=== PATIENT | male | born 1990 | race Caucasian/White ===

== ENCOUNTER 2016-03-19 08:33 | Emergency (ER) | payer OTHER ==
--- NOTE | 2016-03-19 13:14 | ED ORDER SUMMARY ---
..... Patient: ELSY RIVERA OrderSheet [facility] VisitID: [id number] [address] [place] [address] 25y, M Registration Date/Time: 03/19/2016 ORDER SHEET Weight: 74.8 kg (stated) Allergies: No Known Drug Allergy GENERAL ORDERS: CBC w Diff Urgent (08:48 03/19/2016 Milton JACOBS) (9:33 Johnathan R.N.) CMP Urgent (08:48 03/19/2016 Milton JACOBS) (9:33 Johnathan R.N.) UA-Culture if indicated Urgent (08:48 03/19/2016 Milton JACOBS) (Ack 9:46 ALawrence ER Tech1) (10:46 Johnathan R.N.) Lipase Urgent (08:48 03/19/2016 Milton JACOBS) (9:33 Johnathan R.N.) MEDICATION ORDERS: IV FLUIDS: IV NS : initial bolus none -, then 1000 mL/hr for 2h (NOW); Urgent (2 liters of saline) (08:47 03/19/2016 Milton JACOBS) (Ack 8:50 Johnathan R.N.) (9:09 Johnathan R.N.) Zofran IV 8 mg (NOW) (08:48 03/19/2016 Milton JACOBS) (Ack 8:50 Johnathan R.N.) (9:09 Johnathan R.N.) ORDER SHEET NOTES: [Electronically signed by Jacklyn Cabrera R.N. (13:42 03/19/2016)] [Electronically signed by Fabien Mitchell MD (19:31 03/19/2016)] [Electronically locked/signed by Jacklyn Cabrera R.N. (13:42 03/19/2016)]
--- NOTE | 2016-03-19 13:14 | ED ORDER SUMMARY ---
..... Patient: ELSY RIVERA OrderSheet VisitID: [id number] [address] [place] [address] 25y, M Registration Date/Time: 03/19/2016 ORDER SHEET Weight: 74.8 kg (stated) Allergies: No Known Drug Allergy GENERAL ORDERS: CBC w Diff Urgent (08:48 03/19/2016 Milton JACOBS) (9:33 Johnathan R.N.) CMP Urgent (08:48 03/19/2016 Milton JACOBS) (9:33 Johnathan R.N.) UA-Culture if indicated Urgent (08:48 03/19/2016 Milton JACOBS) (Ack 9:46 ALawrence ER Tech1) (10:46 Johnathan R.N.) Lipase Urgent (08:48 03/19/2016 Milton JACOBS) (9:33 Johnathan R.N.) MEDICATION ORDERS: IV FLUIDS: IV NS : initial bolus none -, then 1000 mL/hr for 2h (NOW); Urgent (2 liters of saline) (08:47 03/19/2016 Milton JACOBS) (Ack 8:50 Johnathan R.N.) (9:09 Johnathan R.N.) Zofran IV 8 mg (NOW) (08:48 03/19/2016 Milton JACOBS) (Ack 8:50 Johnathan R.N.) (9:09 Johnathan R.N.) ORDER SHEET NOTES: [Electronically signed by Jacklyn Cabrera R.N. (13:42 03/19/2016)] [Electronically signed by Fabien Mitchell MD (19:31 03/19/2016)] [Electronically locked/signed by Jacklyn Cabrera R.N. (13:42 03/19/2016)]
--- NOTE | 2016-03-19 13:14 | ED CLINICAL REPORT ---
Clinical Report - Physicians/Mid Levels [facility] [address] [place] [address] 03/19/2016 8:33 Patient: ELSY RIVERA Time Seen: 08:46. Arrived- By private vehicle. Historian- patient and family. HISTORY OF PRESENT ILLNESS Chief Complaint: VOMITING and DIARRHEA. This started last night and is still present. It was abrupt in onset and has been constant and waxing/waning. The patient has had nausea and severe, constant abdominal pain. The pain is described as located in the upper abdomen. He has had vomiting. The vomiting has occurred numerous times. No coffee-grounds emesis or frankly bloody emesis. He has had loose stools. This has occurred numerous times. It has been watery. No bloody diarrhea. He has had contact with a sick family member. They have had similar symptoms. The illness is described as moderate. REVIEW OF SYSTEMS No chills, fever, sweats, calf pain or chest pain. No cough, difficulty breathing, pedal edema or palpitations. He has had fatigue. He has had urinary problems (he reports decreased urination). All systems otherwise negative, except as recorded above. PAST HISTORY Problems: Cervical Strain. Fall. Tremor. Additional Surgeries: Adenoidectomy. Dental Surgery. Medications: Propranolol HCl ER Oral, as needed. Allergies: No Known Drug Allergy. SOCIAL HISTORY Never smoker. Occasional alcohol use. No drug use. Residence: He is supposed to leave for [place] later today to attend school Is a local resident. Due to get on a plane for [place] at 2 pm. FAMILY HISTORY No significant family medical history. PHYSICAL EXAM Appearance: Alert. Eyes: Pupils equal, round and reactive to light. ENT: Pharynx normal. Neck: Normal inspection. Neck supple. CVS: Normal heart rate and rhythm. Heart sounds normal. Respiratory: No respiratory distress. Breath sounds normal. Abdomen: Soft and nontender. Abnormal bowel sounds: hyperactive. No organomegaly. No mass. Back: Normal inspection. No CVA tenderness. Skin: Skin warm and dry. Normal skin color. No rash. Normal skin turgor. Extremities: Extremities exhibit normal ROM. No calf tenderness. No lower extremity edema. LABS, X-RAYS, AND EKG Laboratory Tests: UA-Culture if indicated: (JUAN: 03/19/2016 10:45) ( MsgRcvd 03/19/2016 11:11) Final results Test Result Flag Units (Reference) URINE COLOR YELLOW URINE APPEARANCE CLEAR URINE GLUCOSE NEGATIVE (NEGATIVE) URINE BILIRUBIN NEGATIVE (NEGATIVE) URINE KETONE 3+ (NEGATIVE) URINE SPECIFIC GRAVITY 1.010 (1.010-1.030) URINE PH 7.5 (5.0-8.0) URINE PROTEIN NEGATIVE (NEGATIVE) URINE UROBILINOGEN 0.2 EU/dL (0.2-1.0) URINE NITRITE NEGATIVE (NEGATIVE) URINE BLOOD NEGATIVE (NEGATIVE) URINE LEUK ESTERASE NEGATIVE (NEGATIVE) URINE RBC NONE SEEN rbc/hpf (0-1) URINE WBC 0-1 wbc/hpf (0-1) URINE EPITHELIAL CELLS RARE EPI/hpf (0-5) URINE BACTERIA NONE SEEN (NONE SEEN) URINE COMMENT CULT NOT INDICATED TRACE MUCOUSURINE CULTURES ARE SET-UP BASED ON THE FOLLOWING CRITERIA:POSITIVE NITRITEPOSITIVE LEUKOCYTE ESTERASEGREATER THAN 10 WHITE BLOOD CELLSMODERATE (2+) OR GREATER BACTERIA CBC w Diff: (JUAN: 03/19/2016 09:00) ( MsgRcvd 03/19/2016 09:24) Final results Test Result Flag Units (Reference) WHITE BLOOD COUNT 15.6 H K/uL (4.5-11.5) RED BLOOD COUNT 5.70 M/uL (4.50-5.90) HEMOGLOBIN 16.8 gm/dL (13.5-17.5) HEMATOCRIT 51.1 % (41.0-53.0) MEAN CELL VOLUME 90 fL (80-100) MEAN CORPUSCULAR HGB 29 pg (26-34) MEAN CORPUSCULAR HGB CONC 33 g/dL (31-37) RED CELL DISTRIBUTION WIDTH 13.2 % (11.6-14.8) PLATELET COUNT 259 K/uL (150-400) NEUTROPHIL % 92.3 H % (50-75) LYMPH % 3.6 L % (25-40) MONO % 4.0 % (3-14) EOSINOPHIL % 0.1 % (0-4) BASOPHIL % 0 % (0-2) CMP: (JUAN: 03/19/2016 09:00) ( MsgRcvd 03/19/2016 10:11) Final results Test Result Flag Units (Reference) GLUCOSE 129 H mg/dL (70-110) BUN 22 H mg/dL (7-18) CREATININE 0.9 mg/dL (0.6-1.3) Estimated GFR >60 mL/min Estimated GFR- >60 mL/min Note: Persistent reduction over 3 months in eGFR<60 mL/min/1.73 m2 defines CKD. Patients with eGFR values>=60 mL/min/1.73 m2 may also have CKD if evidence ofpersistent proteinuria. Additional information may be foundat www.kidney.org. SODIUM 142 mmol/L (136-145) POTASSIUM 3.8 mmol/L (3.5-5.1) CHLORIDE 102 mmol/L (98-107) CARBON DIOXIDE 26 mmol/L (21-32) CALCIUM 8.9 mg/dL (8.5-10.1) TOTAL PROTEIN 8.0 g/dL (6.4-8.2) ALBUMIN 4.4 g/dL (3.3-5.0) BILIRUBIN, TOTAL 0.7 mg/dL (0.0-1.0) ALKALINE PHOSPHATASE 80 U/L (46-116) AST (SGOT) 17 U/L (15-37) ALT (SGPT) 25 U/L (12-78) LIPASE 100 U/L (73-393) . PROGRESS AND PROCEDURES Course of Care: Symptoms better. Vital signs have been reviewed. Physical exam findings are improved. Alert. No acute distress. Breath sounds normal. Normal heart rate and rhythm. Heart sounds normal. Abdomen soft and nontender. Skin warm and dry. Patient/family counseled. Old medical records ordered. Disposition: Discharged. Condition: stable. CLINICAL IMPRESSION Acute viral gastroenteritis. INSTRUCTIONS No driving or operating machinery while taking medication. Drink plenty of fluids. Warnings: Further evaluation is necessary. GENERAL WARNINGS: Return or contact your physician immediately if your condition worsens or changes unexpectedly, if not improving as expected, or if other problems arise. Prescription Medications: Zofran 4 mg: Take 1 orally every six hours as needed for nausea/vomiting. Dispense ten (10). No refills. Substitution is permissible. Promethazine 25 mg suppositories: Insert 1 into rectum every 4 to 6 hours as needed for nausea and vomiting. Dispense twelve (12). No refills. Follow-up: Follow up with your doctor Tuesday. Call for an appointment. Understanding of the discharge instructions verbalized by patient and parent. (Electronically signed by Fabien Mitchell MD 03/19/2016 19:31)
--- NOTE | 2016-03-19 13:14 | ED NURSING NOTES ---
Clinical Report - Nurses [facility] [place] [address] 03/19/2016 8:33 Patient: ELSY RIVERA TRIAGE Triage time 08:44. Acuity: LEVEL 3. Chief Complaint: ABDOMINAL PAIN, NAUSEA, VOMITING and DIARRHEA. Alert. PRECIOUS COMA SCORE: Doland Coma Scale: 15- eyes open spontaneously (4); best verbal response- oriented x 4 (5); best motor response- obeys commands (6). --08:50 Jacklyn Cabrera R.N. 08:43 03/19/16. BP: 125/84. HR: 90. RR: 16. O2 saturation: 100% on room air. Temp: 98.1 F (oral). Pain level now: 09/13. --08:50 Jacklyn Cabrera R.N. Weight: 74.8 kg stated. Height/Length: 70 inches Per Patient. BMI: 23.7. --08:46 Jacklyn Cabrera R.N. Medications Propranolol HCl ER Oral, as needed. --08:45 Jacklyn Cabrera R.N. The following entry was struck and corrected by Jacklyn Cabrera R.N., 08:46 (03/19/16) Reason for correction - other(correction). <<STRICKEN ENTRY-- Propranolol HCl ER Oral. --08:45 Jacklyn Cabrera R.N. --END STRIKE>>. Medication/allergy information source: the patient. --08:50 Jacklyn Cabrera R.N. Allergies No Known Drug Allergy. --08:45 Jacklyn Cabrera R.N. History Arrived by private vehicle. Historian: patient. Accompanied by family. Primary physician (Reji). This started today. Onset. (0100). Describes the quality as "pain" and ( constant). Relates location as in the upper abdomen. He has had diarrhea. SOCIAL HX: Smoker- current status unknown (no). Occasional alcohol use. No drug use. FALL RISK ASSESSMENT: Fall risk assessment completed. No fall risk identified. FUNCTIONAL ASSESSMENT: Functional assessment: no impairments noted. LEARNING NEEDS ASSESSMENT: The learning needs assessment revealed no barriers. --08:50 Jacklyn Cabrera R.N. PROBLEMS: Cervical Strain. Fall. Tremor. --08:45 Jacklyn Cabrera R.N. ADDITIONAL SURGERIES: Adenoidectomy. Dental Surgery. --08:46 Jacklyn Cabrera R.N. Assessment GENERAL / NEURO / PSYCH: The patient is awake and alert, is oriented and cooperative and appears uncomfortable. He has good eye contact. RESPIRATORY: Respirations not labored. SKIN: Skin is warm and dry. --08:50 Jacklyn Cabrera R.N. Interventions ID band on patient. To treatment room. --08:50 Jacklyn Cabrera R.N. PHYSICAL ASSESSMENT 08:52 03/19/16. Ambulatory to room. Patient gowned. GENERAL / NEURO / PSYCH: The patient is awake and alert, is oriented and cooperative and appears uncomfortable. He has good eye contact. RESPIRATORY: Respirations not labored. SKIN: Skin is warm and dry. --08:52 Jacklyn Cabrera R.N. NURSING PROGRESS NOTES 08:52 03/19/16. Pulse oximeter and NIBP monitor placed on patient. Patient gowned. Head of bed elevated. Call light placed in reach. Side rails up x 1. Bed placed in lowest position. Brakes of bed on. --08:52 Jacklyn Cabrera R.N. 09:00 03/19/2016 Site #1 started via IV in the right antecubital space with an 20g angiocath, with aseptic technique and good blood return; one attempt. Blood drawn: rainbow set. Labeled in the presence of the patient and sent to the lab. --09:08 Jacklyn Cabrera R.N. 09:09 03/19/2016 Started bag #1 1000 mL IV Fluids IV NS (Saline); at 1000 mL/hr over 1 hour(s) via site #1 --09:09 Jacklyn Cabrera R.N. 09:09 03/19/2016 Zofran (Ondansetron HCl) IVP 8 mg given over 4 minute(s) via site #1. Allergies verified and confirmed 5 rights. IV patency established. IV site checked: no pain, redness, or swelling. IV flushed thoroughly pre- and post-medication administration. IVP given by RN. --09:09 Jacklyn Cabrera R.N. 09:49 03/19/16. Reassessment after fluids administered and medication administered. He is resting quietly. Overall patient status is improved- he states feels better (ice chips and gatorade given). SKIN: Skin is warm and dry. --09:49 Jacklyn Cabrera R.N. 09:50 03/19/2016 IV Fluids IV NS Bag Change: bag #1 infused. Total amount infused: 1000. STARTED bag #2 (1000 mL) at 1000 mL/hr. --09:50 Jacklyn Cabrera R.N. 10:20 03/19/16. Reassessment after fluids administered and medication administered. He is resting quietly. Overall patient status is improved- he states feels the same (took a few ice chips but his stomach started hurting so he stopped, no further emesis, not able to void yet). --10:20 Jacklyn Cabrera R.N. 10:48 03/19/2016 Site #1; patent. Converted to saline lock. Flushed with 10 mL saline. --10:48 Jacklyn Cabrera R.N. 10:50 03/19/16. Reassessment after fluids administered. He is resting quietly. Overall patient status is improved- he states feels better (voided approx 200 ml per urinal). SKIN: Skin is warm and dry. --10:50 Jacklyn Cabrera R.N. 10:50 03/19/16. :patient confirmed. Clean catch urine collected; sample sent to lab. Specimen labeled in the presence of the patient. --10:50 Jacklyn Cabrera R.N. 09:00 03/19/16. BP: 124/79. HR: 98. RR: 16. O2 saturation: 100% on room air. --11:35 Jacklyn Cabrera R.N. 09:30 03/19/16. BP: 122/64. HR: 99. RR: 18. O2 saturation: 99% on room air. --11:38 Jacklyn Cabrera R.N. 10:00 03/19/16. BP: 123/61. HR: 100. O2 saturation: 100% on room air. --11:39 Jacklyn Cabrera R.N. 11:00 03/19/16. BP: 110/63. HR: 105. RR: 18. O2 saturation: 99% on room air. Temp: 98.5 F (oral). --11:42 Jacklyn Cabrera R.N. 11:51 03/19/2016 IV Fluids IV NS Bag Change: bag #2 infused. Total amount infused: 1000. STARTED bag #3 (1000 mL) at 1000 mL/hr (per VO of ERMD). --11:51 Jacklyn Cabrera R.N. 12:00 03/19/16. BP: 112/64. HR: 105. RR: 18. O2 saturation: 100% on room air. Pain level now: 03/16. --13:26 Jacklyn Cabrera R.N. 11:45. Reassessment after fluids administered. He is resting quietly. Overall patient status is improved (rests quietly with eyes closed, has had no emesis since arrival). SKIN: Skin is warm and dry. --13:26 Jacklyn Cabrera R.N. 13:00. Reassessment after fluids administered. He is calm and resting quietly. Overall patient status is improved- he states feels better (taking ice chips and gatorade without emesis, states he feels better). SKIN: Skin is warm and dry. --13:27 Jacklyn Cabrera R.N. 13:00 03/19/2016 Site #1 removed upon discharge. Catheter intact. Bandaid applied. --13:29 Jacklyn Cabrera R.N. 13:00 03/19/2016 IV Fluids IV NS Discontinued: bag #3 infused upon discharge. Total amount infused: 1000 mL. --13:28 Jacklyn Cabrera R.N. 13:00 03/19/2016 Zofran IVP Response: symptoms have improved the patient feels better. --13:28 Jacklyn Cabrera R.N. DISPOSITION / DISCHARGE Departure time: 1300. Condition at departure: improved and stable. No learning barriers present. Discharge instructions provided and reviewed with the patient. Reviewed medication(s) (Rx called to [facility] per pt request). Patient verbalized understanding. Written instructions provided in Kinyarwanda. The patient was discharged home and unaccompanied at time of discharge. He left the Emergency Department ambulatory and via private vehicle. FALL RISK ASSESSMENT: Fall risk assessment completed. No fall risk identified. --13:23 Jacklyn Cabrera R.N. 13:14 03/19/16. BP: 115/70. HR: 92. RR: 16. O2 saturation: 99% on room air. Pain level now: 0/10. --13:23 Jacklyn Cabrera R.N. Reviewed medication(s). Prescription(s) phoned to pharmacy ([facility]): Zofran 4 mg: take 1 orally every six hours as needed for nausea/vomiting, dispense ten (10), no refills, supstitution is permissible; Promethazine 25 mg suppositories: insert 1 into rectum every 4-6 hours as needed for nausea and vomiting, dispense twelve (12), no refills). --13:33 Jacklyn Cabrera R.N. Locked/Released at 03/19/2016 13:42 by Jacklyn Cabrera R.N.
--- NOTE | 2016-03-19 19:31 | ED MED RECONCILIATION SUMMARY ---
Patient: ELSY RIVERA Medication Reconciliation Report [facility] VisitID: [id number] [address] [place] [address] 25y, M Registration Date/Time: 03/19/2016 Weight: 74.8 kg Height/Length: 70 in. BMI: 23.7 ALLERGIES: No Known Drug Allergy The patient's Home Medications are listed below: THE FOLLOWING MEDICATIONS NEED TO BE RECONCILED: Propranolol HCl ER Oral The source(s) of the original Home Medication information: patient The following Medications were given to the patient in the Emergency Department: IV NS IV Fluids bolus 0, then 1000 mL/hr, administered: 03/19/2016 9:09:00 AM Zofran [IVP] IVP 8 mg, administered: 03/19/2016 9:09:00 AM The following Medications were prescribed to the patient: Zofran 4 mg: Take 1 orally every six hours as needed for nausea/vomiting. Dispense ten (10). No refills. Substitution is permissible. -- Fabien Mitchell MD Promethazine 25 mg suppositories: Insert 1 into rectum every 4 to 6 hours as needed for nausea and vomiting. Dispense twelve (12). No refills. -- Fabien Mitchell MD
--- NOTE | 2016-03-19 19:31 | ED MED RECONCILIATION SUMMARY ---
Patient: ELSY RIVERA Medication Reconciliation Report [facility] VisitID: [id number] [address] [place] [address] 25y, M Registration Date/Time: 03/19/2016 Weight: 74.8 kg Height/Length: 70 in. BMI: 23.7 ALLERGIES: No Known Drug Allergy The patient's Home Medications are listed below: THE FOLLOWING MEDICATIONS NEED TO BE RECONCILED: Propranolol HCl ER Oral The source(s) of the original Home Medication information: patient The following Medications were given to the patient in the Emergency Department: IV NS IV Fluids bolus 0, then 1000 mL/hr, administered: 03/19/2016 9:09:00 AM Zofran [IVP] IVP 8 mg, administered: 03/19/2016 9:09:00 AM The following Medications were prescribed to the patient: Zofran 4 mg: Take 1 orally every six hours as needed for nausea/vomiting. Dispense ten (10). No refills. Substitution is permissible. -- Fabien Mitchell MD Promethazine 25 mg suppositories: Insert 1 into rectum every 4 to 6 hours as needed for nausea and vomiting. Dispense twelve (12). No refills. -- Fabien Mitchell MD
--- NOTE | 2016-03-19 19:31 | ED DISCHARGE INSTRUCTIONS ---
Patient: ELSY RIVERA General Instructions [facility] VisitID: [id number] [place] [address] 25y, M Registration Date/Time: 03/19/2016 Acute viral gastroenteritis. INSTRUCTIONS No driving or operating machinery while taking medication. Drink plenty of fluids. Warnings: Further evaluation is necessary. GENERAL WARNINGS: Return or contact your physician immediately if your condition worsens or changes unexpectedly, if not improving as expected, or if other problems arise. Prescription Medications: Zofran 4 mg: Take 1 orally every six hours as needed for nausea/vomiting. Dispense ten (10). No refills. Substitution is permissible. Promethazine 25 mg suppositories: Insert 1 into rectum every 4 to 6 hours as needed for nausea and vomiting. Dispense twelve (12). No refills. Follow-up: Follow up with your doctor Tuesday. Call for an appointment. Understanding of the discharge instructions verbalized by patient and parent. ADDITIONAL INFORMATION Viral Gastroenteritis (6Yr-Adult) Gastroenteritis is another name for thestomach flu.It is most often caused by a virus that affects the stomach and intestinal tract. Symptoms include stomach cramping and fever, vomiting and/or diarrhea, and can last from 2 to 7 days. The danger from repeated vomiting or diarrhea is dehydration. This is the loss of too much water and minerals from the body. When this occurs, body fluids must be replaced. Antibiotics are not effective for this illness, but simple home treatment will be helpful. Home Care If symptoms are severe, rest at home for the next 24 hours. Avoid tobacco, caffeine, and alcohol use, which can worsen symptoms. Acetaminophen (Tylenol) or ibuprofen (Motrin, Advil) may be usedfor fever or pain unless another medication was prescribed. NOTE: If you have chronic liver or kidney disease or ever had a stomach ulcer or GI bleeding, talk with your doctor before using these medicines. Aspirin should never be used in anyone under 18 years of age who is ill with a fever. It may cause severe liver damage. If medicines for diarrhea or vomiting were prescribed, be sure they are takenonly as directed. If vomiting, drink small amounts of clear fluids (such as water, sports drinks, clear sodas) at frequent intervals to prevent dehydration. Start with 1 to 2 tablespoons every 10 minutes. Once vomiting stops, follow these guidelines: During The First 12 To 24 Hours follow the diet below: Beverages: Sport drinks like Gatorade, soft drinks without caffeine; gallo jeramy, mineral water (plain or flavored), decaffeinated tea and coffee. Soups: Clear broth, consomm and bouillon Desserts: Plain gelatin (Jell-O), Popsicles and fruit juice bars. During The Next 24 Hours you may add the following to the above: Hot cereal, plain toast, bread, rolls, crackers Plain noodles, rice, mashed potatoes, chicken noodle or rice soup Unsweetened canned fruit (avoid pineapple), bananas Limit fat intake to less than 15 grams per day by avoiding margarine, butter, oils, mayonnaise, sauces, gravies, fried foods, peanut butter, meat, poultry, and fish. Limit fiber; avoid raw or cooked vegetables, fresh fruits (except bananas), and bran cereals. Limit caffeine and chocolate. Do not use spices or seasonings except salt. During The Next 24 Hours The patient can gradually resume a normal diet as symptoms lessen. Preventing Spread Hand washing with soap and water is the best way to prevent the spread of viruses. Caregivers should wash their hands before andafter touching the sick person. The sick person, as well as everyone in the family,should wash their hands after using the toilet and before meals. Clean the toilet after each use. People with diarrhea should not prepare food for others. If you are preparing your own foods, wash your hands before and after. Follow Up with your doctor as advised. Call your doctor if you are not improving over the next 2 to 3 days. If a stool (diarrhea) sample was taken, you may call in 2 days (or as directed) for the results. Get Prompt Medical Attention if any of the following occur: Increasing abdominal pain Continued vomiting (unable to keep liquids down) Frequent diarrhea (more than 5 times a day) Blood in vomit or stool (black or red color) Dark urine, reduced urine output, or extreme thirst Weakness, dizziness, fainting Drowsiness, confusion, stiff neck, or seizure Fever of 100.4F (38C) oral or higher, not better with fever medication New rash Dehydration (Adult) Dehydration occurs when your body loses too much fluid. This may be the result of vomiting a lot or from diarrhea,sweating a lot, or a high fever. It may also happen if you dont drink enough fluid when youre sick. Misuse of diuretics (water pills) can also be a cause. Symptoms include thirst and feeling dizzy, weak, fatigued, or very drowsy. The diet described below is usually enough to treat most cases. Sometimes you may needmedicine. Home Care Follow these guidelines for home care: Drink at least 12 8-ounce glasses of fluid every day to overcome the dehydration. Fluid may include water; orange juice; lemonade; apple, grape, and cranberry juice; clear fruit drinks; electrolyte replacement and sports drinks; and teas and coffee without caffeine. If you have been diagnosed with a kidney disease, ask your doctor how much and what types of fluids you should drink to prevent dehydration. If you have kidney disease, drinking too much fluid can cause it build up in the your body and be dangerous to your health. If you have fever, muscle aching, or headache from a viral syndrome, you may useacetaminophen or ibuprofen, unless another medicine was prescribed for this.If you have chronic liver or kidney disease or ever had a stomach ulcer or GI bleeding, talk with your doctor before using these medicines. Don't take aspirin if you are younger than 18 and are ill with a fever.Aspirin raises the chance forsevere liver injury. Follow-up care Follow up with your health care provider if you don't get better in the next 24 to 48 hours. When to seek medical care Get prompt medical attention if any of theseoccur: Continued vomiting (cant keep liquids down) Frequent diarrhea (more than 5 times a day); blood (red or black color) or mucus in diarrhea Blood in vomit or stool Swollen abdomen or increasing abdominal pain Weakness, dizziness, or fainting Unusually drowsy or confused Reduced urine output or extreme thirst Fever of 100.4 F (38 C) oral or higher that does not get better with fever medication Ondansetron Oral disintegrating tablet What is this medicine? ONDANSETRON (on PATRICIA se myriam) is used to treat nausea and vomiting caused by chemotherapy. It is also used to prevent or treat nausea and vomiting after surgery. How should I use this medicine? These tablets are made to dissolve in the mouth. Do not try to push the tablet through the foil backing. With dry hands, peel away the foil backing and gently remove the tablet. Place the tablet in the mouth and allow it to dissolve, then swallow. While you may take these tablets with water, it is not necessary to do so. Talk to your project structural engineer regarding the use of this medicine in children. Special care may be needed. What side effects may I notice from receiving this medicine? Side effects that you should report to your doctor or health career technical education instructor as soon as possible: allergic reactions like skin rash, itching or hives, swelling of the face, lips, or tongue breathing problems dizziness fast or irregular heartbeat feeling faint or lightheaded, falls fever and chills swelling of the hands and feet tightness in the chest Side effects that usually do not require medical attention (report to your doctor or health career technical education instructor if they continue or are bothersome): constipation or diarrhea headache What may interact with this medicine? Do not take this medicine with any of the following medications: -apomorphine -cisapride -dofetilide -dronedarone -pimozide -thioridazine -ziprasidone This medicine may also interact with the following medications: -carbamazepine -phenytoin -rifampicin -tramadol -other medicines that prolong the QT interval (cause an abnormal heart rhythm) What if I miss a dose? If you miss a dose, take it as soon as you can. If it is almost time for your next dose, take only that dose. Do not take double or extra doses. Where should I keep my medicine? Keep out of the reach of children. Store between 2 and 30 degrees C (36 and 86 degrees F). Throw away any unused medicine after the expiration date. What should I tell my health care provider before I take this medicine? They need to know if you have any of these conditions: heart disease history of irregular heartbeat liver disease low levels of magnesium or potassium in the blood an unusual or allergic reaction to ondansetron, granisetron, other medicines, foods, dyes, or preservatives or trying to get breast-feeding What should I watch for while using this medicine? Check with your doctor or health career technical education instructor as soon as you can if you have any sign of an allergic reaction. Promethazine Hydrochloride Rectal suppository What is this medicine? PROMETHAZINE (proe METH a zeen) is an antihistamine. It is used to treat allergic reactions and to treat or prevent nausea and vomiting from illness or motion sickness. It is also used to make you sleep before surgery, and to help treat pain or nausea after surgery. How should I use this medicine? This medicine is for rectal use only. Do not take by mouth. Wash your hands before and after use. Take off the foil wrapping. Wet the tip of the suppository with cold tap water to make it easier to use. Lie on your side with your lower leg straightened out and your upper leg bent forward toward your stomach. Lift upper buttock to expose the rectal area. Apply gentle pressure to insert the suppository completely into the rectum, pointed end first. Hold buttocks together for a few seconds. Remain lying down for about 15 minutes to avoid having the suppository come out. Do not use more often than directed. Talk to your project structural engineer regarding the use of this medicine in children. Special care may be needed. This medicine should not be given to infants and children younger than 2 years old. What side effects may I notice from receiving this medicine? Side effects that you should report to your doctor or health career technical education instructor as soon as possible: blurred vision irregular heartbeat, palpitations or chest pain muscle or facial twitches pain or difficulty passing urine seizures skin rash slowed or shallow breathing unusual bleeding or bruising yellowing of the eyes or skin Side effects that usually do not require medical attention (report to your doctor or health career technical education instructor if they continue or are bothersome): headache nightmares, agitation, nervousness, excitability, not able to sleep (these are more likely in children) stuffy nose What may interact with this medicine? Do not take this medicine with any of the following medications: medicines called MAO Inhibitors like Nardil, Parnate, Marplan, Eldepryl other phenothiazines like trimethobenzamide This medicine may also interact with the following medications: barbiturates such as phenobarbital bromocriptine certain antidepressants certain antihistamines used in allergy or cold medicines epinephrine levodopa medicines for sleep medicines for mental problems and psychotic disturbances medicines for movement abnormalities as in Parkinson's disease, or for gastrointestinal problems muscle relaxants prescription pain medicines What if I miss a dose? If you miss a dose, use it as soon as you can. If it is almost time for your next dose, use only that dose. Do not use double doses. Where should I keep my medicine? Keep out of the reach of children. Store in a refrigerator between 2 and 8 degrees C (36 and 46 degrees F). Throw away any unused medicine after the expiration date. What should I tell my health care provider before I take this medicine? They need to know if you have any of these conditions: glaucoma high blood pressure or heart disease kidney disease liver disease lung or breathing disease, like asthma prostate trouble pain or difficulty passing urine seizures an unusual or allergic reaction to promethazine or phenothiazines, other medicines, foods, dyes, or preservatives or trying to get breast-feeding What should I watch for while using this medicine? Tell your doctor or health career technical education instructor if your symptoms do not start to get better in 1 to 2 days. You may get drowsy or dizzy. Do not drive, use machinery, or do anything that needs mental alertness until you know how this medicine affects you. To reduce the risk of dizzy or fainting spells, do not stand or sit up quickly, especially if you are an older patient. Alcohol may increase dizziness and drowsiness. Avoid alcoholic drinks. Your mouth may get dry. Chewing sugarless gum or sucking hard candy, and drinking plenty of water may help. Contact your doctor if the problem does not go away or is severe. This medicine may cause dry eyes and blurred vision. If you wear contact lenses you may feel some discomfort. Lubricating drops may help. See your eye doctor if the problem does not go away or is severe. This medicine can make you more sensitive to the sun. Keep out of the sun. If you cannot avoid being in the sun, wear protective clothing and use sunscreen. Do not use sun lamps or tanning beds/booths. If you are diabetic, check your blood-sugar levels regularly. You have been given the following additional information: Gastroenteritis, Viral (6Y-Adult) Dehydration (Adult) Ondansetron Oral disintegrating tablet Promethazine Hydrochloride Rectal suppository No driving or operating machinery while taking medication. (Electronically signed by Fabien Mitchell MD 03/19/2016 19:31)
--- NOTE | 2016-03-19 19:31 | ED MAR SUMMARY ---
..... Medication Administration Record [facility] [address] [place] [address] Patient: ELSY RIVERA Visit ID: [id number] 25y, M Weight: 74.8 kg Height/Length: 70 in BMI: 23.7 ALLERGIES: No Known Drug Allergy Start 09:09 03/19/2016 Jacklyn Cabrera R.N., Stop 13:00 03/19/2016 Jacklyn Cabrera R.N. Medication Administered: IV NS (SALINE), Dose: IV Fluids over 1 hour(s), Rate: 1000 mL/hr, Dispensed: 1000 mL bag, Site: #1 right AC. Medication Ordered: IV NS : initial bolus none -, then 1000 mL/hr for 2h (NOW); Urgent (2 liters of saline). Given 09:09 03/19/2016 Jacklyn Cabrera R.N. Medication Administered: ZOFRAN [IVP] (ONDANSETRON HCL), Dose: 8 mg IVP over 4 minute(s), Site: #1 right AC. Medication Ordered: Zofran IV 8 mg (NOW).
--- NOTE | 2016-03-19 19:31 | ED MAR SUMMARY ---
..... Medication Administration Record Merged With [facility] [address] [place] [address] Patient: ESLY RIVERA Visit ID: [id number] 25y, M Weight: 74.8 kg Height/Length: 70 in BMI: 23.7 ALLERGIES: No Known Drug Allergy Start 09:09 03/19/2016 Jacklyn Cabrera R.N., Stop 13:00 03/19/2016 Jacklyn Cabrera R.N. Medication Administered: IV NS (SALINE), Dose: IV Fluids over 1 hour(s), Rate: 1000 mL/hr, Dispensed: 1000 mL bag, Site: #1 right AC. Medication Ordered: IV NS : initial bolus none -, then 1000 mL/hr for 2h (NOW); Urgent (2 liters of saline). Given 09:09 03/19/2016 Jacklyn Cabrera R.N. Medication Administered: ZOFRAN [IVP] (ONDANSETRON HCL), Dose: 8 mg IVP over 4 minute(s), Site: #1 right AC. Medication Ordered: Zofran IV 8 mg (NOW).
== END 2016-03-19 13:00 | disposition home or self-care (01) ==
LOC: ED SRH 08:33
DX: A08.4 Viral intestinal infection, unspecified (principal)
CPT/HCPCS: 90004; 90100; 92235; 95059